=== PATIENT | female | born 1955 | race Caucasian/White ===

== ENCOUNTER 2023-03-26 06:30 | Outpatient (CLI) | payer MEDICARE, BC, SELFPAY ==
--- NOTE | 2023-03-26 08:01 | W.ANESCHARGE ---
Anesthesia Charges Start Date/Time Anesthesia Start Date: 03/26/23 Anesthesia Start Time: 07:20 Stop Date/Time Anesthesia Stop Date: 03/26/23 Anesthesia Stop Time: 07:57
--- NOTE | 2023-03-26 08:24 | W.ANESCHARGE ---
Anesthesia Charges Start Date/Time Anesthesia Start Date: 03/26/23 Anesthesia Start Time: 07:20 Stop Date/Time Anesthesia Stop Date: 03/26/23 Anesthesia Stop Time: 07:57
== END 2023-03-26 06:31 | disposition home or self-care (01) ==
LOC: OP CLINIC 06:31
PROVIDERS: PCP Physician Assistant Medical; Visit Provider Surgery
DX: Z12.11 Encounter for screening for malignant neoplasm of colon (principal); K63.5 Polyp of colon; K64.8 Other hemorrhoids; Z86.010 Personal history of colon polyps
CPT/HCPCS: 00811; 45385; 88305; J2704